=== PATIENT | male | born 1950 | race Caucasian/White ===

== ENCOUNTER 2019-03-17 13:25 | Inpatient (IN) | payer MEDICARE ==
[2019-03-20] MEDS ORDERED: NALOXONE INH PRN (12:45)
[2019-03-20] MEDS ORDERED: Albuterol HFA 18 Gm Inhaler INH PRN (12:45)
[2019-03-20] MEDS ORDERED: Magnesium Hydroxide 400 MG/5 ML Susp 30 ML Cup PO PRN (12:49)
[2019-03-20] MEDS ORDERED: Polyethylene Glycol 3350 Powder 17 GM Packet PO PRN (12:49)
[2019-03-20] MEDS ORDERED: Albuterol 0.083% 2.5 MG/3 ML Neb Soln NEB PRN (13:11)
[2019-03-20] MEDS ORDERED: Ipratropium 0.02% 0.5 MG/2.5 ML Neb Soln NEB SCH (15:00)
[2019-03-20] MEDS: Fluticasone-Salmeterol 232-14 MCG Powder Inhalent INH SCH (19:55)
[2019-03-20] MEDS: Acetaminophen/HYDROcodone 325-10 MG Tab PO SCH (19:56)
[2019-03-20] MEDS: Morphine 30 MG Tab.ER PO SCH (19:58)
[2019-03-20] MEDS: Mirtazapine 30 MG Tab PO SCH (19:58)
[2019-03-21] MEDS ORDERED: Cyclobenzaprine 10 MG Tab PO STA (01:10)
[2019-03-21] MEDS ORDERED: Cyclobenzaprine 10 MG Tab PO PRN (01:20)
[2019-03-21] MEDS ORDERED: Non-Formulary Medication 1 Each (Tiotropium [Spiriva Handihaler] 1 CAP) PO SCH (08:00)
[2019-03-21] MEDS: Morphine 30 MG Tab.ER PO SCH ×2 (08:41→20:16)
[2019-03-21] MEDS: Tamsulosin 0.4 MG Cap.ER PO SCH (08:41)
[2019-03-21] MEDS: Acetaminophen/HYDROcodone 325-10 MG Tab PO SCH ×2 (08:41→20:17)
[2019-03-21] MEDS: Cholecalciferol (Vitamin D3) 25 MCG Tab PO SCH (08:42)
[2019-03-21] MEDS: Enoxaparin 40 MG/0.4 ML Syringe SUBCUT SCH (08:42)
[2019-03-21] MEDS: Aspirin 81 MG Tab.EC PO SCH (08:42)
[2019-03-21] MEDS: Citalopram 20 MG Tab PO SCH (08:42)
[2019-03-21] MEDS: Fluticasone-Salmeterol 232-14 MCG Powder Inhalent INH SCH ×2 (08:42→20:17)
[2019-03-21] MEDS: SPIRIVA HANDIHALER PO SCH (11:15)
--- NOTE | 2019-03-21 12:44 | HP ---
CHIEF COMPLAINT: 1. Acute right hip fracture. 2. Weakness. 3. Deconditioning. 4. Acute superior pubic ramus fracture. HISTORY OF PRESENT ILLNESS: Mr. Jo is a 68-year-old male who initially presented to the emergency room at [facility] after he tripped over a shoe and fell against a chair with severe pain in his right hip and pelvis. He has underlying COPD, emphysematous type. He is on home O2. He also has pulmonary hypertension. He is on chronic narcotic analgesic and has a pain contract through [facility]. Mr. Jo is a vet, but the [place] is not accepting ortho surgical cases; therefore, he was transferred to [facility] in [place]. Mr. Jo suffered major trauma trimming a tree, falling several feet onto concrete surface in 2009. He suffered a skull fracture with a TBI, facial fracture, left arm and left hip fracture. 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 The patient denies any headaches. No vision trouble or other injuries. The patient denies any fevers or chills. He has had to increase his O2 since his fall. He does not have any chest pain. The patient denies any palpitations. The patient currently denies any pain. PAST MEDICAL HISTORY: 1. BPH. 2. Cerebrovascular disease, with stroke. 3. Chronic back pain. 4. COPD. 5. Depression. 6. Erectile dysfunction. 7. Long-term use of opioid analgesic. 8. TBI. 9. Visual problems. PAST SURGICAL HISTORY: 1. Elbow surgery. 2. Hip surgery. 3. Neck surgery. 4. Chest tube placement. 5. Shoulder surgery. 6. Thoracotomy. 7. Upper GI. FAMILY HISTORY: Noncontributory. SOCIAL HISTORY: The patient reports that he quit smoking about 5 to 6 years ago. His smoking use included cigarettes. He started smoking about 50 years ago. He has a [id number] smoking history. The patient denies any alcohol or drug use. ALLERGIES: Penicillin. CURRENT MEDICATIONS: 1. Hydrocodone/acetaminophen 10/325 one tablet p.o. twice daily. 2. Albuterol HFA 2.5 mg nebulizer every 4 hours as needed. 3. Aspirin 81 mg 1 tablet p.o. daily. 4. Cholecalciferol 25 mcg 1 tablet p.o. daily. 5. Citalopram 40 mg 1 tablet p.o. daily. 6. Cyclobenzaprine 10 mg 1 tablet p.o. every 8 hours as needed. 7. Docusate sodium/senna 1 tablet p.o. twice daily as needed. 8. Enoxaparin 40 mg subcutaneously daily. 9. Fluticasone/salmeterol 1 puff inhalation twice daily. 10.Magnesium hydroxide 30 mL p.o. every 12 hours as needed. 11.Mirtazapine 30 mg 1 tablet p.o. at bedtime. 12.MS Contin 30 mg 1 tablet p.o. twice daily. 13.Naloxone 1 spray inhalation as needed. 14.Polyethylene glycol 17 g p.o. daily as needed. 15.Tamsulosin 0.4 mg 1 tablet p.o. daily. 16.Spiriva 1 capsule p.o. daily. REVIEW OF SYSTEMS: Constitutional: Negative. Respiratory: Denies any shortness of breath or cough. Cardiac: Denies any chest pain, palpitations, or leg swelling. Abdomen: Denies any pain or problems with bowel movements. Musculoskeletal: The patient states he has mild pain with ambulation; however, he is comfortable. Skin: Negative. Neurological: Negative. PHYSICAL EXAMINATION: Vital Signs: Height is 5 feet 11 inches, weight is 199 pounds, temperature is 98.4, pulse is 89, blood pressure is 99/70, respirations are 18, pulse ox is 98%. General Presentation: The patient is alert. The patient is cooperative, in no acute distress. Respiratory: Lung sounds are decreased, clear throughout. Cardiac: Regular rate and rhythm. No murmur. Abdomen: Soft. Bowel sounds are present x4. No tenderness. Musculoskeletal: Incision sites are healing well. Skin: Intact, no rash. Neurological: The patient is alert. The patient is oriented x3, no focal neurological deficits. ASSESSMENT: 1. Acute right hip fracture. 2. Acute superior pubic rami fracture. 3. Weakness. 4. Deconditioning. 5. Acute pain, history of chronic pain and narcotic dependence. 6. Chronic obstructive pulmonary disease/emphysema. 7. Chronic respiratory failure, hypoxia, home O2. 8. Pulmonary hypertension. PLAN: The patient will be admitted to the swing bed unit at [facility] for weakness and deconditioning secondary to his hip fracture. The patient will be seen by Physical Therapy. We will ask Case Management to be involved for discharge planning. The patient is a full code. The patient does wish to be transferred to a higher level of care should the need arise. No changes with any medications, we will continue his home medications as prescribed. The patient will follow his pain contract rules while he is on swing bed. The patient will be placed on a heart healthy diet. We will continue Lovenox 40 mg subcu daily for DVT prophylaxis. Note: This patient was seen and examined by me as an [facility] provider. TB: 03/21/2019 07:44:32 MODL: 03/21/2019 12:35:51 /[id number]
[2019-03-21] MEDS: Mirtazapine 30 MG Tab PO SCH (20:16)
[2019-03-21] MEDS: Cyclobenzaprine 10 MG Tab PO PRN (23:48)
[2019-03-22] MEDS: Acetaminophen/HYDROcodone 325-10 MG Tab PO SCH ×2 (08:54→19:51)
[2019-03-22] MEDS: SPIRIVA HANDIHALER PO SCH (08:54)
[2019-03-22] MEDS: Cholecalciferol (Vitamin D3) 25 MCG Tab PO SCH (08:54)
[2019-03-22] MEDS: Citalopram 20 MG Tab PO SCH (08:54)
[2019-03-22] MEDS: Morphine 30 MG Tab.ER PO SCH ×2 (08:54→19:51)
[2019-03-22] MEDS: Enoxaparin 40 MG/0.4 ML Syringe SUBCUT SCH (08:54)
[2019-03-22] MEDS: Tamsulosin 0.4 MG Cap.ER PO SCH (08:55)
[2019-03-22] MEDS: Aspirin 81 MG Tab.EC PO SCH (08:55)
[2019-03-22] MEDS: Fluticasone-Salmeterol 232-14 MCG Powder Inhalent INH SCH ×2 (08:55→19:51)
[2019-03-22] MEDS: Cyclobenzaprine 10 MG Tab PO PRN (12:47)
[2019-03-22] MEDS: Acetaminophen 325 MG Tab PO PRN (17:35)
[2019-03-22] MEDS: Mirtazapine 30 MG Tab PO SCH (19:51)
[2019-03-23] MEDS: Cyclobenzaprine 10 MG Tab PO PRN (00:33)
[2019-03-23] MEDS: Enoxaparin 40 MG/0.4 ML Syringe SUBCUT SCH (09:02)
[2019-03-23] MEDS: Acetaminophen/HYDROcodone 325-10 MG Tab PO SCH ×2 (09:03→21:03)
[2019-03-23] MEDS: Morphine 30 MG Tab.ER PO SCH ×2 (09:03→21:01)
[2019-03-23] MEDS: Cholecalciferol (Vitamin D3) 25 MCG Tab PO SCH (09:03)
[2019-03-23] MEDS: Tamsulosin 0.4 MG Cap.ER PO SCH (09:04)
[2019-03-23] MEDS: Citalopram 20 MG Tab PO SCH (09:04)
[2019-03-23] MEDS: Aspirin 81 MG Tab.EC PO SCH (09:04)
[2019-03-23] MEDS: Fluticasone-Salmeterol 232-14 MCG Powder Inhalent INH SCH ×2 (09:06→21:06)
[2019-03-23] MEDS: SPIRIVA HANDIHALER PO SCH (09:06)
[2019-03-23] MEDS: Mirtazapine 30 MG Tab PO SCH (21:04)
[2019-03-24] MEDS: Cholecalciferol (Vitamin D3) 25 MCG Tab PO SCH (07:49)
[2019-03-24] MEDS: Acetaminophen/HYDROcodone 325-10 MG Tab PO SCH ×2 (07:49→19:48)
[2019-03-24] MEDS: Citalopram 20 MG Tab PO SCH (07:49)
[2019-03-24] MEDS: Enoxaparin 40 MG/0.4 ML Syringe SUBCUT SCH (07:50)
[2019-03-24] MEDS: Tamsulosin 0.4 MG Cap.ER PO SCH (07:50)
[2019-03-24] MEDS: Aspirin 81 MG Tab.EC PO SCH (07:50)
[2019-03-24] MEDS: Morphine 30 MG Tab.ER PO SCH ×2 (07:50→19:48)
[2019-03-24] MEDS: Fluticasone-Salmeterol 232-14 MCG Powder Inhalent INH SCH ×2 (07:51→19:49)
[2019-03-24] MEDS: SPIRIVA HANDIHALER PO SCH (07:52)
[2019-03-24] MEDS: Acetaminophen 325 MG Tab PO PRN (18:33)
[2019-03-24] MEDS: Mirtazapine 30 MG Tab PO SCH (19:49)
[2019-03-25] MEDS: Enoxaparin 40 MG/0.4 ML Syringe SUBCUT SCH (08:02)
[2019-03-25] MEDS: Tamsulosin 0.4 MG Cap.ER PO SCH (08:02)
[2019-03-25] MEDS: Cholecalciferol (Vitamin D3) 25 MCG Tab PO SCH (08:02)
[2019-03-25] MEDS: SPIRIVA HANDIHALER PO SCH (08:02)
[2019-03-25] MEDS: Fluticasone-Salmeterol 232-14 MCG Powder Inhalent INH SCH ×2 (08:02→19:49)
[2019-03-25] MEDS: Citalopram 20 MG Tab PO SCH (08:03)
[2019-03-25] MEDS: Morphine 30 MG Tab.ER PO SCH ×2 (08:03→19:48)
[2019-03-25] MEDS: Acetaminophen/HYDROcodone 325-10 MG Tab PO SCH ×2 (08:03→19:48)
[2019-03-25] MEDS: Aspirin 81 MG Tab.EC PO SCH (08:03)
[2019-03-25] MEDS: Mirtazapine 30 MG Tab PO SCH (19:49)
[2019-03-26] MEDS: Morphine 30 MG Tab.ER PO SCH ×2 (07:35→19:19)
[2019-03-26] MEDS: Fluticasone-Salmeterol 232-14 MCG Powder Inhalent INH SCH ×2 (07:36→19:19)
[2019-03-26] MEDS: SPIRIVA HANDIHALER PO SCH (07:36)
[2019-03-26] MEDS: Citalopram 20 MG Tab PO SCH (07:36)
[2019-03-26] MEDS: Tamsulosin 0.4 MG Cap.ER PO SCH (07:37)
[2019-03-26] MEDS: Acetaminophen/HYDROcodone 325-10 MG Tab PO SCH ×2 (07:37→19:20)
[2019-03-26] MEDS: Aspirin 81 MG Tab.EC PO SCH (07:37)
[2019-03-26] MEDS: Enoxaparin 40 MG/0.4 ML Syringe SUBCUT SCH (07:38)
[2019-03-26] MEDS: Cholecalciferol (Vitamin D3) 25 MCG Tab PO SCH (07:38)
[2019-03-26] MEDS: Mirtazapine 30 MG Tab PO SCH (19:20)
[2019-03-26] MEDS: Cyclobenzaprine 10 MG Tab PO PRN (23:13)
[2019-03-27] MEDS: Enoxaparin 40 MG/0.4 ML Syringe SUBCUT SCH (08:20)
[2019-03-27] MEDS: Citalopram 20 MG Tab PO SCH (08:21)
[2019-03-27] MEDS: Morphine 30 MG Tab.ER PO SCH ×2 (08:21→19:15)
[2019-03-27] MEDS: Acetaminophen/HYDROcodone 325-10 MG Tab PO SCH ×2 (08:22→19:15)
[2019-03-27] MEDS: Aspirin 81 MG Tab.EC PO SCH (08:22)
[2019-03-27] MEDS: Cholecalciferol (Vitamin D3) 25 MCG Tab PO SCH (08:22)
[2019-03-27] MEDS: Tamsulosin 0.4 MG Cap.ER PO SCH (08:22)
[2019-03-27] MEDS: Fluticasone-Salmeterol 232-14 MCG Powder Inhalent INH SCH ×2 (08:24→19:14)
[2019-03-27] MEDS: SPIRIVA HANDIHALER PO SCH (09:37)
[2019-03-27] MEDS: Mirtazapine 30 MG Tab PO SCH (19:15)
[2019-03-27] MEDS: Cyclobenzaprine 10 MG Tab PO PRN (23:27)
[2019-03-28] MEDS: Fluticasone-Salmeterol 232-14 MCG Powder Inhalent INH SCH ×2 (07:42→19:22)
[2019-03-28] MEDS: Enoxaparin 40 MG/0.4 ML Syringe SUBCUT SCH (07:42)
[2019-03-28] MEDS: SPIRIVA HANDIHALER PO SCH (07:42)
[2019-03-28] MEDS: Citalopram 20 MG Tab PO SCH (07:43)
[2019-03-28] MEDS: Acetaminophen/HYDROcodone 325-10 MG Tab PO SCH ×2 (07:43→19:22)
[2019-03-28] MEDS: Tamsulosin 0.4 MG Cap.ER PO SCH (07:43)
[2019-03-28] MEDS: Cholecalciferol (Vitamin D3) 25 MCG Tab PO SCH (07:44)
[2019-03-28] MEDS: Morphine 30 MG Tab.ER PO SCH ×2 (07:44→19:21)
[2019-03-28] MEDS: Aspirin 81 MG Tab.EC PO SCH (07:44)
[2019-03-28] MEDS: Mirtazapine 30 MG Tab PO SCH (19:22)
[2019-03-29] MEDS: SPIRIVA HANDIHALER PO SCH (08:04)
[2019-03-29] MEDS: Fluticasone-Salmeterol 232-14 MCG Powder Inhalent INH SCH ×2 (08:04→19:18)
[2019-03-29] MEDS: Acetaminophen/HYDROcodone 325-10 MG Tab PO SCH ×2 (08:06→19:19)
[2019-03-29] MEDS: Enoxaparin 40 MG/0.4 ML Syringe SUBCUT SCH (08:06)
[2019-03-29] MEDS: Aspirin 81 MG Tab.EC PO SCH (08:06)
[2019-03-29] MEDS: Tamsulosin 0.4 MG Cap.ER PO SCH (08:06)
[2019-03-29] MEDS: Citalopram 20 MG Tab PO SCH (08:06)
[2019-03-29] MEDS: Morphine 30 MG Tab.ER PO SCH ×2 (08:06→19:20)
[2019-03-29] MEDS: Cholecalciferol (Vitamin D3) 25 MCG Tab PO SCH (08:06)
[2019-03-29] MEDS: Mirtazapine 30 MG Tab PO SCH (19:19)
[2019-03-30 05:22] VITALS: BP 104/60; PULSE 74
[2019-03-30] MEDS: Fluticasone-Salmeterol 232-14 MCG Powder Inhalent INH SCH (07:49)
[2019-03-30] MEDS: Enoxaparin 40 MG/0.4 ML Syringe SUBCUT SCH (07:50)
[2019-03-30] MEDS: Cholecalciferol (Vitamin D3) 25 MCG Tab PO SCH (07:50)
[2019-03-30] MEDS: SPIRIVA HANDIHALER PO SCH (07:50)
[2019-03-30] MEDS: Tamsulosin 0.4 MG Cap.ER PO SCH (07:50)
[2019-03-30] MEDS: Citalopram 20 MG Tab PO SCH (07:50)
[2019-03-30] MEDS: Morphine 30 MG Tab.ER PO SCH (07:50)
[2019-03-30] MEDS: Acetaminophen/HYDROcodone 325-10 MG Tab PO SCH (07:50)
[2019-03-30] MEDS: Aspirin 81 MG Tab.EC PO SCH (07:50)
[2019-03-30] MEDS: Sulfamethoxazole/Trimethoprim 800-160 MG Tab PO SCH ×2 (09:25→09:26)
--- NOTE | 2019-03-30 15:00 | DISCH ---
DISCHARGE DIAGNOSES: 1. Acute right hip fracture. 2. Weakness. 3. Deconditioning. 4. Acute superior pubic ramus fracture. 5. Status post hemiarthroplasty, right hip. DISCHARGE DESTINATION: Home. HISTORY OF PRESENT ILLNESS: Mr. Jo is a 68-year-old male who initially presented to the emergency room at [facility] after he tripped over a shoe and fell against a chair with severe pain to his right hip and pelvis. He has underlying COPD, emphysematous type. He is on home O2. He also has pulmonary hypertension. He is on chronic narcotic analgesic and has a pain contract through [facility]. Mr. Jo is a vet, but the [place] is not accepting ortho-surgical cases; therefore, he was transferred to [facility] in [place]. Mr. Jo underwent a right hip hemiarthroplasty on 03/10/2019. The surgery was uneventful. The patient had done well with physical therapy and was able to be discharged to the Swing Bed Unit at [facility] on 03/20/2019. The patient also did well while he was on the Swing Bed Unit. The patient did have a re-evaluation with Orthopedics on 03/28/2019. The dominique from his incision were removed. The patient did have some draining from the surgical site, therefore, he was prophylactically started on Bactrim DS. This medication was not started as there is not a source of infection. HOSPITAL COURSE: The patient did well during his stay on the Swing Bed Unit. Patient was able to participate with physical therapy and has met his goals for discharge. The patient's pain was under well control. Patient did tolerate his diet okay. Patient did not have any issues with urination or bowel movement. The patient remained hemodynamically stable. Discharge vital signs: Temperature 98.3, pulse 74, blood pressure 104/60, respirations 17, oxygen saturation 95% on 3 L. DISCHARGE REVIEW OF SYSTEMS: Constitutional: Negative. Respiratory: Negative. Cardiovascular: Negative. Wound/Incision: Has some mild tenderness. Neurological: Negative. DISCHARGE PHYSICAL EXAM: Constitutional: The patient is alert, the patient is oriented to person, place, and time. Respiratory: Lung sounds are clear but diminished throughout. Cardiovascular: Regular rate and rhythm. No murmur. Incision: Wound is healing well. There is no dehiscence. No drainage this morning. Neurological: The patient is alert, sensation intact, no distress. DISCHARGE LABORATORY WORK: None. DISCHARGE IMAGING STUDIES: None. DISCHARGE MEDICATIONS: 1. Acetaminophen/hydrocodone 10/325, one tablet twice daily. 2. Aspirin 81 mg 1 tablet p.o. daily. 3. Cholecalciferol 25 mcg 1 tablet p.o. daily. 4. Citalopram 40 mg 1 tablet p.o. daily. 5. Cyclobenzaprine 10 mg 1 tablet p.o. every 8 hours. 6. Docusate sodium 1 tablet p.o. twice daily as needed. 7. Fluticasone/salmeterol 1 puff twice daily. 8. Mirtazapine 30 mg 1 tablet p.o. at bedtime. 9. Morphine 30 mg 1 tablet p.o. twice daily. 10.Naloxone 1 spray as directed. 11.Tamsulosin 0.4 mg 1 tablet p.o. daily. 12.Spiriva 1 capsule inhalation daily. DISCHARGE DIET: 2 g sodium. PLAN: The patient will be discharged home today. The patient will have outpatient physical therapy through [facility]. No changes with any home medications. Did discuss with the patient any problems with his wound that he should return to the clinic; otherwise, he will follow up with Dr. Alla Hoff in 1 week for a post hospitalization followup. TB: 03/30/2019 08:41:14 MODL: 03/30/2019 14:52:11 /[id number]
== END 2019-03-30 13:15 | disposition home or self-care (01) | DRG 560 ==
LOC: VM.MS 03-20 13:56
PROVIDERS: ADMIT Nurse Practitioner Family; ATTEND Nurse Practitioner Family
DX: Z47.1 Aftercare following joint replacement surgery (principal); J96.11 Chronic respiratory failure with hypoxia; J44.9 Chronic obstructive pulmonary disease, unspecified; N40.0 Benign prostatic hyperplasia without lower urinary tract symptoms; I27.20 Pulmonary hypertension, unspecified; M54.9 Dorsalgia, unspecified; G89.29 Other chronic pain; Z96.641 Presence of right artificial hip joint; F32.9 Major depressive disorder, single episode, unspecified; Z98.890 Other specified postprocedural states; Z87.891 Personal history of nicotine dependence; Z88.0 Allergy status to penicillin; Z79.51 Long term (current) use of inhaled steroids; Z79.82 Long term (current) use of aspirin; Z79.899 Other long term (current) drug therapy; Z99.81 Dependence on supplemental oxygen; Z86.73 Personal history of transient ischemic attack (TIA), and cerebral infarction without residual deficits
CPT/HCPCS: 94640; 94760; 97110-GP; 97116-GP; 97161-GP; 97165-GO; 97535-GO; A9270-GY; J1650

== ENCOUNTER 2020-09-02 20:50 | Emergency (ER) | payer MEDICARE, OTHER ==
[2020-09-02] MEDS ORDERED: Sodium Chloride 0.9% 10 ML Syringe FLUSH PRN (21:00)
[2020-09-02] MEDS ORDERED: methylPREDNISolone Sodium Succinate 125 MG/2 ML SDV IVPUSH ONE (21:01)
[2020-09-02] MEDS ORDERED: methylPREDNISolone Sodium Succinate 125 MG/2 ML SDV ONE (21:11)
--- NOTE | 2020-09-02 21:11 | EDM.PDOC ---
ED HPI GENERAL MEDICAL PROBLEM - General Chief Complaint: Respiratory Problem Stated Complaint: SOB Time Seen by Provider: 09/02/20 20:59 Source of Information: Reports: EMS, Family - History of Present Illness INITIAL COMMENTS - FREE TEXT/NARRATIVE: Raymond is a 70 y/o male who is brought to the ER via EMS with severe SOB. He has been SOB all day and also complained of back pain. He arrives from EMS with Bipap and a neb going. On arrival to his home medics reports that he had sats in the 70s and with NRB he only was in the mid 80s. The patient reports a dry hacky cough today, denies any sputum or fever when asked. Family is here in the hospital, but does not offer much info about the patient other than they are upset that he was brought her to the [facility] ER and was not taken directly to [place]. - Related Data Allergies Allergy/AdvReac Type Severity Reaction Status Date / Time Penicillins Allergy Hives Verified 09/03/15 12:46 Home Meds: Home Meds Albuterol [Ventolin HFA] 2 puff PO QID 07/16/15 [History] Aspirin [Halfprin] 81 mg PO DAILY 07/16/15 [History] Cholecalciferol (Vitamin D3) [Vitamin D3] 1,000 units PO DAILY 07/16/15 [History] Escitalopram Oxalate [Lexapro] 20 mg PO DAILY 07/16/15 [History] Hydrocodone/Acetaminophen [[place] 10-325] 1 tab PO BID 07/16/15 [History] Mirtazapine [Remeron] 30 mg PO BEDTIME 07/16/15 [History] Tamsulosin [Flomax] 0.4 mg PO DAILY 07/16/15 [History] Tiotropium [Spiriva HandiHaler] 1 cap PO DAILY 07/16/15 [History] Budesonide/Formoterol Fumarate [Symbicort 160-4.5 Mcg Inhaler] 2 puff INH BID 03/20/19 [History] Enoxaparin [Lovenox] 40 mg SUBCUT Q24H 03/20/19 [History] Morphine Sulfate [Morphine Sulfate ER] 30 mg PO Q12HR 03/20/19 [History] Naloxone HCl [Narcan] 1 spray INH ASDIRECTED PRN 03/20/19 [History] Past Medical History HEENT History: Reports: None Cardiovascular History: Reports: SOB on Exertion Respiratory History: Reports: COPD Musculoskeletal History: Reports: Back Pain, Chronic, Neck Pain, Chronic Psychiatric History: Reports: Depression Hematologic History: Reports: None Immunologic History: Reports: None Oncologic (Cancer) History: Reports: None - Past Surgical History HEENT Surgical History: Reports: None Musculoskeletal Surgical History: Reports: Shoulder Surgery Oncologic Surgical History: Reports: None Dermatological Surgical History: Reports: None Social & Family History - Caffeine Use Caffeine Use: Reports: Coffee Caffeine Use Comment: Three cups of coffee a day. Review of Systems - Review of Systems Review Of Systems: Unable To Obtain Reason Not Obtained: Complete ROS not obtained due to condition Respiratory: Reports: Shortness of Breath, Cough. Denies: Sputum ED EXAM, GENERAL - Physical Exam Exam: See Below General Appearance: Alert, Moderate Distress, Severe Distress, Other (Elderly male in acute distress) Ears: Hearing Grossly Normal Throat/Mouth: Normal Inspection Head: Atraumatic, Normocephalic Neck: Supple Respiratory/Chest: Respiratory Distress, Decreased Breath Sounds, Crackles (scattered throughout), Prolonged Expiration Cardiovascular: Normal Peripheral Pulses, Regular Rate, Rhythm, No Murmur GI/Abdominal: Normal Bowel Sounds, Soft (Male) Exam: Circumcised, Other (incontinent of urine) Rectal (Males) Exam: Deferred Back Exam: Normal Inspection Extremities: Other (Right lower leg is erthematous and swollen from foot up to below knee) Neurological: Alert, CN II-XII Intact, Other (Can given 1 word answers in between breathing) Skin Exam: Warm, Dry, Intact, Normal Color Lymphatic: No Adenopathy Course - Vital Signs Text/Narrative:: 2058 The patient was seen on arrival to the ER. Labs, EKG, and CXR ordered. He had a neb finishing from EMS, SoluMedrol 125mg IVP was given. [facility] was contacted and case presented to Dr Sparks. Plan to intubate patient due to increasing resp rate and decreasing sats. See nursing notes for intubation times and med dosages. Following intubation, CXR was obtained. Note questionable left sided pneumothorax, but clinically patient doing better. Very diminished lung sounds in the LLLSats 90% with vent nereida HSK5=139%, Rate 14, Tidal Jqkupg=741, PEEP 10. Ceftriaxone 2gm IVP and Azithromycin 500mg IVPB ordered to cover for sepsis. Lactic Acid-2.5, WBC=18.5, Neuts-86%. Trop=neg. Cannot exclude pneumonia, but also consider Cellulitis of Right Lower leg as course of infection. [facility]. Questionable left pneumothorax, but patient tolerating intubation and sats 90-91%. Decision made by flight crew and PROFILING MACHINE OPERATOR to move patient to their vent and reassess prior to transport. No chest tube placed here since patient doing well on transport vent and no definite p neumo identified. Patient left in critical condition with flight crew. - Orders/Labs/Meds Orders: Active Orders 24 hr Category Date Time Status Burgess Catheter Insertion [Insert Urinary Catheter] [OM. Care 09/02/20 22:15 Ordered PC] Q24H CULTURE BLOOD [BC] Stat Lab 09/02/20 21:14 Received CULTURE BLOOD [BC] Stat Lab 09/02/20 21:20 Results Blood Culture x2 Reflex Set [OM.PC] Stat Oth 09/02/20 21:00 Ordered Saline Lock Insert [OM.PC] Stat Oth 09/02/20 21:00 Ordered Labs: Laboratory Tests 09/02/20 09/02/20 09/02/20 Range/Units 21:14 21:14 21:14 WBC 18.5 H (4.0-10.0) x10^3/uL RBC 5.07 (4.5-6.0) x10^6/uL Hgb 15.5 D (14.0-18.0) g/dL Hct 46.3 (40.0-52.0) % MCV 91.3 (78.0-93.0) fL MCH 30.6 (26.0-32.0) pg MCHC 33.5 (32.0-36.0) g/dL RDW Coeff of Cristian 15.0 (10.0-15.0) % Plt Count 233 (130-400) x10^3/uL Add Manual Diff Yes Neutrophils % (Manual) 86 H (50-80) % Band Neutrophils % 4 (0-6) % Lymphocytes % (Manual) 6 L (25-50) % Monocytes % (Manual) 4 (2-11) % Platelet Estimate Adequate PT (9.9-12.5) SEC INR (2.0-3.5) APTT (25.6-32.8) SEC D-Dimer, Quantitative (<=0.58) mg/LFEU Sodium 131 L (136-145) mmol/L Potassium 4.6 (3.5-5.1) mmol/L Chloride 95 L (98-107) mmol/L Carbon Dioxide 27 (21-32) mmol/L Anion Gap 13.6 (5-15) mmol/L BUN 24 H (7-18) mg/dL Creatinine 1.1 (0.70-1.30) mg/dL Est Cr Clr Drug Dosing TNP Estimated GFR (MDRD) > 60 Glucose 114 H (70-99) mg/dL Lactic Acid 2.5 H* (0.4-2.0) mmol/L Calcium 9.0 (8.5-10.1) mg/dL Corrected Calcium 10.0 (8.5-10.1) mg/dL Magnesium 1.8 (1.8-2.4) mg/dL Total Bilirubin 1.1 H (0.2-1.0) mg/dL AST 21 (15-37) U/L ALT 21 (16-63) U/L Alkaline Phosphatase 100 (46-116) U/L Troponin I High Sens 24 (<=76) ng/L Total Protein 6.7 (6.4-8.2) g/dL Albumin 2.8 L (3.4-5.0) g/dL Globulin 3.9 Albumin/Globulin Ratio 0.72 Urine Color (YELLOW) Urine Appearance (CLEAR) Urine pH (5.0-8.0) Ur Specific [place] Urine Protein (NEGATIVE) mg/dL Urine Glucose (UA) (NEGATIVE) mg/dL Urine Ketones (NEGATIVE) mg/dL Urine Occult Blood (NEGATIVE) Urine Nitrite (NEGATIVE) Urine Bilirubin (NEGATIVE) Urine Urobilinogen (0.2) EU/dL Ur Leukocyte Esterase (NEGATIVE) Urine RBC (NOT SEEN) /HPF Urine WBC (NOT SEEN) /HPF Urine Bacteria (NOT SEEN) /HPF Urine Mucus (NOT SEEN) /LPF Influenza Type A RNA (NEGATIVE) Influenza Type B RNA (NEGATIVE) SARS-CoV-2 RNA (GURVINDER) (NEGATIVE) 09/02/20 09/02/20 09/02/20 Range/Units 21:20 21:43 22:01 WBC (4.0-10.0) x10^3/uL RBC (4.5-6.0) x10^6/uL Hgb (14.0-18.0) g/dL Hct (40.0-52.0) % MCV (78.0-93.0) fL MCH (26.0-32.0) pg MCHC (32.0-36.0) g/dL RDW Coeff of Cristian (10.0-15.0) % Plt Count (130-400) x10^3/uL Add Manual Diff Neutrophils % (Manual) (50-80) % Band Neutrophils % (0-6) % Lymphocytes % (Manual) (25-50) % Monocytes % (Manual) (2-11) % Platelet Estimate PT 12.0 (9.9-12.5) SEC INR 1.1 L (2.0-3.5) APTT 32.8 (25.6-32.8) SEC D-Dimer, Quantitative 2.72 H (<=0.58) mg/LFEU Sodium (136-145) mmol/L Potassium (3.5-5.1) mmol/L Chloride (98-107) mmol/L Carbon Dioxide (21-32) mmol/L Anion Gap (5-15) mmol/L BUN (7-18) mg/dL Creatinine (0.70-1.30) mg/dL Est Cr Clr Drug Dosing Estimated GFR (MDRD) Glucose (70-99) mg/dL Lactic Acid (0.4-2.0) mmol/L Calcium (8.5-10.1) mg/dL Corrected Calcium (8.5-10.1) mg/dL Magnesium (1.8-2.4) mg/dL Total Bilirubin (0.2-1.0) mg/dL AST (15-37) U/L ALT (16-63) U/L Alkaline Phosphatase (46-116) U/L Troponin I High Sens (<=76) ng/L Total Protein (6.4-8.2) g/dL Albumin (3.4-5.0) g/dL Globulin Albumin/Globulin Ratio Urine Color Yellow (YELLOW) Urine Appearance Clear (CLEAR) Urine pH 7.0 (5.0-8.0) Ur Specific [place] 1.025 Urine Protein 30 H (NEGATIVE) mg/dL Urine Glucose (UA) Negative (NEGATIVE) mg/dL Urine Ketones Negative (NEGATIVE) mg/dL Urine Occult Blood Negative (NEGATIVE) Urine Nitrite Negative (NEGATIVE) Urine Bilirubin Small H (NEGATIVE) Urine Urobilinogen 2.0 H (0.2) EU/dL Ur Leukocyte Esterase Negative (NEGATIVE) Urine RBC 0-5 (NOT SEEN) /HPF Urine WBC 0-5 (NOT SEEN) /HPF Urine Bacteria Rare (NOT SEEN) /HPF Urine Mucus Few H (NOT SEEN) /LPF Influenza Type A RNA Negative (NEGATIVE) Influenza Type B RNA Negative (NEGATIVE) SARS-CoV-2 RNA (GURVINDER) Negative (NEGATIVE) Meds: Medications Discontinued Medications Generic Name Dose Route Start Last Admin Trade Name Freq PRN Reason Stop Dose Admin Ceftriaxone Sodium 2 gm 09/02/20 21:13 Ceftriaxone 1 Gm Vial IVPUSH 09/02/20 21:14 STAT ONE Azithromycin 500 mg/ Sodium 250 mls @ 250 mls/hr 09/02/20 21:13 Chloride IV 09/02/20 22:12 STAT ONE Methylprednisolone Sodium Succinate 125 mg 09/02/20 21:01 Methylprednisolone Sodium Succinate 125 Mg/2 Ml Sdv IVPUSH 09/02/20 21:02 ONETIME ONE Methylprednisolone Sodium Succinate Confirm 09/02/20 21:11 Methylprednisolone Sodium Succinate 125 Mg/2 Ml Sdv Administered 09/02/20 21:12 Dose 125 mg .ROUTE .STK-MED ONE Midazolam HCl Confirm 09/02/20 21:40 Midazolam 1 Mg/Ml 2 Ml Sdv Administered 09/02/20 21:41 Dose 4 mg .ROUTE .STK-MED ONE Rocuronium Ferguson Confirm 09/02/20 21:34 Rocuronium 50 Mg/5 Ml Vial Administered 09/02/20 21:35 Dose 50 mg .ROUTE .STK-MED ONE Sodium Chloride 10 ml 09/02/20 21:00 Sodium Chloride 0.9% 10 Ml Syringe FLUSH ASDIRECTED PRN Keep Vein Open Succinylcholine Chloride Confirm 09/02/20 21:34 Succinylcholine 200 Mg/10 Ml Mdv Administered 09/02/20 21:35 Dose 200 mg .ROUTE .STK-MED ONE Succinylcholine Chloride Confirm 09/02/20 21:36 Succinylcholine 200 Mg/10 Ml Mdv Administered 06/21/21 21:37 Dose 200 mg .ROUTE .STK-MED ONE - Radiology Interpretation Free Text/Narrative:: XR Chest 1V=note extensive chronic changes, maybe early pneumonia, but the chronic lung disease makes reading difficult XR Chest 1V Post Intubation-ET tube in place, questionable left sided pneumothorax, but appearance of lower lobes similar to previous, awaiting radiology over read (See final report) Departure - Departure Time of Disposition: 21:15 Disposition: DC/Tfer to Acute Hospital 02 Condition: Critical Clinical Impression: Elevated lactic acid level Respiratory failure Qualifiers: Chronicity: acute Respiratory failure complication: hypoxia Qualified Code(s): J96.01 - Acute respiratory failure with hypoxia Emphysema/COPD Qualifiers: Emphysema type: unspecified Qualified Code(s): J43.9 - Emphysema, unspecified - Discharge Information Referrals: PCP,None [Primary Care Provider] - Forms: Interfacility Transfer EMTALA, ED Department Discharge Additional Instructions: -Transfer to [facility] ER via [facility]. - My Orders Last 24 Hours: My Active Orders 09/02/20 21:00 Blood Culture x2 Reflex Set [OM.PC] Stat Saline Lock Insert [OM.PC] Stat 09/02/20 21:14 CULTURE BLOOD [BC] Stat 09/02/20 21:20 CULTURE BLOOD [BC] Stat 09/02/20 22:15 Burgess Catheter Insertion [Insert Urinary Catheter] [OM.PC] Q24H - Assessment/Plan Last 24 Hours: My Active Orders 09/02/20 21:00 Blood Culture x2 Reflex Set [OM.PC] Stat Saline Lock Insert [OM.PC] Stat 09/02/20 21:14 CULTURE BLOOD [BC] Stat 09/02/20 21:20 CULTURE BLOOD [BC] Stat 09/02/20 22:15 Burgess Catheter Insertion [Insert Urinary Catheter] [OM.PC] Q24H Assessment:: 1)Respiratory Failure 2)COPD-Emphysema 3)Intubated Plan: As above
[2020-09-02] MEDS ORDERED: Azithromycin 500 MG in Sodium Chloride 0.9% 250 ML IV ONE (21:13)
[2020-09-02] MEDS ORDERED: cefTRIAXone 1 GM Vial IVPUSH ONE (21:13)
[2020-09-02] MEDS ORDERED: Succinylcholine 200 MG/10 ML MDV ONE ×2 (21:34→21:36)
[2020-09-02] MEDS ORDERED: Rocuronium 50 MG/5 ML Vial ONE (21:34)
[2020-09-02] MEDS ORDERED: Midazolam 1 MG/ML 2 ML SDV ONE (21:40)
[2020-09-02 21:52] LABS: CHLORIDE,CL 95 mmol/L (98-107); SODIUM,NA 131 mmol/L (136-145)
[2020-09-02 21:53] LABS: ANION GAP 13.6 mmol/L (5-15)
[2020-09-02 21:56] LABS: PTT,PARTIAL THROMBOPLSTIN TIME 32.8 SEC (25.6-32.8)
[2020-09-02 22:45] LABS: CORONAVIRUS COVID-19 NAA NEGATIVE (NEGATIVE)
--- NOTE | 2020-09-03 08:53 | CR ---
[id number] RAD/RAD Chest PA or AP 1V EXAM: RAD Chest PA or AP 1V INDICATION: POST INTUBATION, RESP DISTRESS COMPARISON: September 2015. DISCUSSION/IMPRESSION: Extensive opacification in the mid and lower lungs bilaterally. Blunting of the costophrenic sulci. Findings are superimposed on advanced parenchymal emphysema with scarring. Mild cardiomegaly and central vascular congestion. Appearance of findings is nonspecific. Differential diagnosis includes pneumonia, pulmonary edema, and/or aspiration/atelectasis. Doug Nunes MD 09/06/20 1426 Thank you for allowing us to participate in the care of your patient.
== END 2020-09-02 22:40 | disposition short-term general hospital (02) ==
LOC: VM.ED 20:50
DX: J43.9 Emphysema, unspecified (principal); J96.01 Acute respiratory failure with hypoxia; R74.02 Elevation of levels of lactic acid dehydrogenase [LDH]; Z20.822 Contact with and (suspected) exposure to COVID-19; Z88.0 Allergy status to penicillin; Z79.82 Long term (current) use of aspirin
CPT/HCPCS: 0240U; 31500; 36415; 51702; 71045; 80053; 81001; 83605; 83735; 84484; 85025; 85379; 85610; 85730; 87040; 93005; 96374; 96375; 99284; 99285-25; J0330

== ENCOUNTER 2020-10-27 20:51 | Emergency (ER) | payer OTHER ==
[2020-10-27] MEDS ORDERED: Furosemide 40 MG/4 ML VIAL IV ONE (21:18)
[2020-10-27] MEDS ORDERED: Albuterol/Ipratropium 3.0-0.5 MG/3 ML Neb Soln NEB ONE (21:26)
--- NOTE | 2020-10-27 21:41 | EDM.PDOC ---
ED HPI GENERAL MEDICAL PROBLEM - General Stated Complaint: FELL Time Seen by Provider: 10/27/20 20:51 Source of Information: Reports: Patient History Limitations: Reports: No Limitations - History of Present Illness INITIAL COMMENTS - FREE TEXT/NARRATIVE: Pt. presents to ER with complaints of L hip pain post fall. Pt. was recently discharged from [facility] after a 2 month stay at [facility]. Pt. had bilateral pneumonia at that time, and he did require prolonged intubation. Pt. has been convalescing at his daughter's residence since he was discharged on Wednesday. Family states that he has been experiencing increased peripheral edema in lower extremities. He was supposed to be on Cardura at time of discharge, but has not been on this for the past 4 days. Pt. states that he fell backward, and landed on his L posterolateral hip area. He has been unable to straighten the extremity. He did receiving fentanyl 100mcg IV in the ambulance. Pt. states that he does feel chilled, and somewhat more short of breath than the past several days. He is on O2 per NC at 5L/min. Pt. denies striking his head, and is not complaining of pain other than to L hip/pelvis area. Onset: Today Onset Date: 10/27/20 Location: Reports: Chest, Lower Extremity, Left, Generalized Worsens with: Reports: Movement Left hip Pain Score (Numeric/FACES): 8 - Related Data Allergies Allergy/AdvReac Type Severity Reaction Status Date / Time Penicillins Allergy Hives Verified 10/27/20 23:26 Home Meds: Home Meds Albuterol [Ventolin HFA] 2 puff PO QID 07/16/15 [History] Aspirin [Halfprin] 81 mg PO DAILY 07/16/15 [History] Cholecalciferol (Vitamin D3) [Vitamin D3] 1,000 units PO DAILY 07/16/15 [History] Escitalopram Oxalate [Lexapro] 20 mg PO DAILY 07/16/15 [History] Hydrocodone/Acetaminophen [[place] 10-325] 1 tab PO BID 07/16/15 [History] Mirtazapine [Remeron] 30 mg PO BEDTIME 07/16/15 [History] Tamsulosin [Flomax] 0.4 mg PO DAILY 07/16/15 [History] Tiotropium [Spiriva HandiHaler] 1 cap PO DAILY 07/16/15 [History] Budesonide/Formoterol Fumarate [Symbicort 160-4.5 Mcg Inhaler] 2 puff INH BID 03/20/19 [History] Enoxaparin [Lovenox] 40 mg SUBCUT Q24H 03/20/19 [History] Morphine Sulfate [Morphine Sulfate ER] 30 mg PO Q12HR 03/20/19 [History] Naloxone HCl [Narcan] 1 spray INH ASDIRECTED PRN 03/20/19 [History] Past Medical History HEENT History: Reports: None Cardiovascular History: Reports: SOB on Exertion Respiratory History: Reports: COPD Musculoskeletal History: Reports: Back Pain, Chronic, Neck Pain, Chronic Psychiatric History: Reports: Depression Hematologic History: Reports: None Immunologic History: Reports: None Oncologic (Cancer) History: Reports: None - Past Surgical History HEENT Surgical History: Reports: None Musculoskeletal Surgical History: Reports: Shoulder Surgery Oncologic Surgical History: Reports: None Dermatological Surgical History: Reports: None Social & Family History - Caffeine Use Caffeine Use: Reports: Coffee Caffeine Use Comment: Three cups of coffee a day. ED ROS GENERAL - Review of Systems Review Of Systems: See Below Constitutional: Reports: No Symptoms HEENT: Reports: No Symptoms Respiratory: Reports: No Symptoms Cardiovascular: Reports: Dyspnea on Exertion, Edema, PND Endocrine: Reports: No Symptoms GI/Abdominal: Reports: No Symptoms : Reports: No Symptoms Musculoskeletal: Reports: Leg Pain Skin: Reports: No Symptoms Neurological: Reports: No Symptoms Psychiatric: Reports: No Symptoms Hematologic/Lymphatic: Reports: No Symptoms Immunologic: Reports: No Symptoms ED EXAM, GENERAL - Physical Exam Exam: See Below Exam Limited By: No Limitations General Appearance: Alert, WD/WN, Anxious, Mild Distress Throat/Mouth: Normal Inspection, Normal Lips, Normal Teeth Head: Atraumatic, Normocephalic Neck: Normal Inspection, Supple, Non-Tender Respiratory/Chest: No Accessory Muscle Use, Decreased Breath Sounds, Crackles, Wheezing Cardiovascular: Normal Peripheral Pulses, Regular Rate, Rhythm, Tachycardia Peripheral Pulses: 4+: Radial (L) GI/Abdominal: Soft, Non-Tender, No Distention, No Mass (Male) Exam: Deferred Rectal (Males) Exam: Deferred Extremities: Normal Inspection, Normal Range of Motion, Non-Tender Neurological: Alert, Oriented, CN II-XII Intact, Normal Cognition, No Motor/Sensory Deficits Psychiatric: Normal Affect, Normal Mood Skin Exam: Warm, Dry, Intact, Normal Color Lymphatic: No Adenopathy #1 Interpretation Rhythm: NSR [place]: Normal P-Wave: Present QRS: Normal ST-T: Normal QT: Normal Course - Vital Signs Last Recorded V/S: Last Vital Signs Temp 38.5 C H 10/27/20 23:06 Pulse 130 H 10/27/20 20:51 Resp 20 10/27/20 20:51 BP 129/70 10/27/20 20:51 Pulse Ox 88 L 10/27/20 20:51 - Orders/Labs/Meds Orders: Active Orders 24 hr Category Date Time Status EKG Documentation Completion [RC] STAT Care 10/27/20 21:16 Active RT Aerosol Therapy [RC] ASDIRECTED Care 10/27/20 21:26 Active Chest 1V Frontal [CR] Stat Exams 10/27/20 20:59 Taken Hip Min 2V or 3V w Pelvis Lt [CR] Stat Exams 10/27/20 20:59 Taken CBC WITH AUTO DIFF [HEME] Stat Lab 10/27/20 22:15 Results CORONAVIRUS COVID-19 RAPID [MOLEC] Stat Lab 10/27/20 23:12 Received CULTURE BLOOD [BC] Stat Lab 10/27/20 22:15 Results CULTURE BLOOD [BC] Stat Lab 10/27/20 22:25 Received CULTURE URINE [RM] Stat Lab 10/27/20 22:15 Received MANUAL DIFFERENTIAL QA/NC [HEME] Stat Lab 10/27/20 22:15 Results PROCALCITONIN [CHEM] Stat Lab 10/27/20 22:15 Received REFLEX LACTIC ACID YES OR NO [CHEM] Routine Lab 10/27/20 23:15 Received Sodium Chloride 0.9% [Normal Saline] 1,000 ml Med 10/27/20 22:40 Active IV ASDIRECTED VANCOmycin 1.25 GM/250 ML 1.25 gm Med 10/27/20 22:28 Active Premix Bag 1 bag IV STAT Blood Culture x2 Reflex Set [OM.PC] Stat Oth 10/27/20 21:16 Ordered Medication Orders Vancomycin HCl 1.25 gm/ Premix 250 mls @ 200 mls/hr IV STAT ONE Stop: 10/27/20 23:42 Last Admin: 10/27/20 22:42 Dose: 200 mls/hr Documented by: JASMIN Sodium Chloride (Normal Saline) 1,000 mls @ 30 mls/hr IV ASDIRECTED JARETT Labs: Laboratory Tests 10/27/20 10/27/20 10/27/20 Range/Units 22:15 22:15 22:15 WBC 12.7 H (4.0-10.0) x10^3/uL RBC 4.37 L (4.5-6.0) x10^6/uL Hgb 13.5 L D (14.0-18.0) g/dL Hct 41.1 (40.0-52.0) % MCV 94.1 H (78.0-93.0) fL MCH 30.9 (26.0-32.0) pg MCHC 32.8 (32.0-36.0) g/dL RDW Coeff of Cristian 16.7 H (10.0-15.0) % Plt Count 255 (130-400) x10^3/uL Add Manual Diff Yes PT 10.2 (9.9-12.5) SEC INR 0.9 L (2.0-3.5) APTT 29.3 (25.6-32.8) SEC ABG pH (7.35-7.45) pH ABG pCO2 (35-48) mmHG ABG pO2 (83-108) mmHG ABG HCO3 (21-28) mmol/L ABG Total CO2 (22-29) mmol/L ABG O2 Content (94-98) % ABG Base Excess ((-2)-(+3)) mmol/L FiO2 Sodium 133 L (136-145) mmol/L Potassium 4.1 (3.5-5.1) mmol/L Chloride 97 L (98-107) mmol/L Carbon Dioxide 28 (21-32) mmol/L Anion Gap 12.1 (5-15) mmol/L BUN 20 H (7-18) mg/dL Creatinine 1.0 (0.70-1.30) mg/dL Est Cr Clr Drug Dosing TNP Estimated GFR (MDRD) > 60 Glucose 92 (70-99) mg/dL Lactic Acid (0.4-2.0) mmol/L Calcium 8.5 (8.5-10.1) mg/dL Corrected Calcium 9.2 (8.5-10.1) mg/dL Phosphorus (2.6-4.7) mg/dL Magnesium (1.8-2.4) mg/dL Total Bilirubin 0.5 (0.2-1.0) mg/dL AST 21 (15-37) U/L ALT 21 (16-63) U/L Alkaline Phosphatase 116 (46-116) U/L Troponin I High Sens (<=76) ng/L C-Reactive Protein (<=0.9) mg/dL NT-Pro-B Natriuret Pep (<=125) pg/mL Total Protein 6.9 (6.4-8.2) g/dL Albumin 3.1 L (3.4-5.0) g/dL Globulin 3.8 Albumin/Globulin Ratio 0.82 Urine Color (YELLOW) Urine Appearance (CLEAR) Urine pH (5.0-8.0) Ur Specific Rector Urine Protein (NEGATIVE) mg/dL Urine Glucose (UA) (NEGATIVE) mg/dL Urine Ketones (NEGATIVE) mg/dL Urine Occult Blood (NEGATIVE) Urine Nitrite (NEGATIVE) Urine Bilirubin (NEGATIVE) Urine Urobilinogen (0.2) EU/dL Ur Leukocyte Esterase (NEGATIVE) U Hyaline Cast (Auto) Urine RBC (NOT SEEN) /HPF Urine WBC (NOT SEEN) /HPF Ur Squamous Epith Cells (NOT SEEN) /HPF Urine Bacteria (NOT SEEN) /HPF Urine Mucus (NOT SEEN) /LPF 10/27/20 10/27/20 10/27/20 Range/Units 22:15 22:15 22:15 WBC (4.0-10.0) x10^3/uL RBC (4.5-6.0) x10^6/uL Hgb (14.0-18.0) g/dL Hct (40.0-52.0) % MCV (78.0-93.0) fL MCH (26.0-32.0) pg MCHC (32.0-36.0) g/dL RDW Coeff of Cristian (10.0-15.0) % Plt Count (130-400) x10^3/uL Add Manual Diff PT (9.9-12.5) SEC INR (2.0-3.5) APTT (25.6-32.8) SEC ABG pH (7.35-7.45) pH ABG pCO2 (35-48) mmHG ABG pO2 (83-108) mmHG ABG HCO3 (21-28) mmol/L ABG Total CO2 (22-29) mmol/L ABG O2 Content (94-98) % ABG Base Excess ((-2)-(+3)) mmol/L FiO2 Sodium (136-145) mmol/L Potassium (3.5-5.1) mmol/L Chloride (98-107) mmol/L Carbon Dioxide (21-32) mmol/L Anion Gap (5-15) mmol/L BUN (7-18) mg/dL Creatinine (0.70-1.30) mg/dL Est Cr Clr Drug Dosing Estimated GFR (MDRD) Glucose (70-99) mg/dL Lactic Acid 2.4 H* (0.4-2.0) mmol/L Calcium (8.5-10.1) mg/dL Corrected Calcium (8.5-10.1) mg/dL Phosphorus 3.0 (2.6-4.7) mg/dL Magnesium 1.5 L (1.8-2.4) mg/dL Total Bilirubin (0.2-1.0) mg/dL AST (15-37) U/L ALT (16-63) U/L Alkaline Phosphatase (46-116) U/L Troponin I High Sens 70 (<=76) ng/L C-Reactive Protein 6.6 H (<=0.9) mg/dL NT-Pro-B Natriuret Pep 1610 H (<=125) pg/mL Total Protein (6.4-8.2) g/dL Albumin (3.4-5.0) g/dL Globulin Albumin/Globulin Ratio Urine Color Yellow (YELLOW) Urine Appearance Slightly cloudy H (CLEAR) Urine pH 5.5 (5.0-8.0) Ur Specific Rector 1.025 Urine Protein 30 H (NEGATIVE) mg/dL Urine Glucose (UA) Negative (NEGATIVE) mg/dL Urine Ketones Negative (NEGATIVE) mg/dL Urine Occult Blood Moderate H (NEGATIVE) Urine Nitrite Positive H (NEGATIVE) Urine Bilirubin Negative (NEGATIVE) Urine Urobilinogen 0.2 (0.2) EU/dL Ur Leukocyte Esterase Small H (NEGATIVE) U Hyaline Cast (Auto) Few Urine RBC 10-20 H (NOT SEEN) /HPF Urine WBC 20-30 H (NOT SEEN) /HPF Ur Squamous Epith Cells Few H (NOT SEEN) /HPF Urine Bacteria Many H (NOT SEEN) /HPF Urine Mucus Few H (NOT SEEN) /LPF 10/27/20 Range/Units 22:35 WBC (4.0-10.0) x10^3/uL RBC (4.5-6.0) x10^6/uL Hgb (14.0-18.0) g/dL Hct (40.0-52.0) % MCV (78.0-93.0) fL MCH (26.0-32.0) pg MCHC (32.0-36.0) g/dL RDW Coeff of Cristian (10.0-15.0) % Plt Count (130-400) x10^3/uL Add Manual Diff PT (9.9-12.5) SEC INR (2.0-3.5) APTT (25.6-32.8) SEC ABG pH 7.39 (7.35-7.45) pH ABG pCO2 41 (35-48) mmHG ABG pO2 94 (83-108) mmHG ABG HCO3 25 (21-28) mmol/L ABG Total CO2 25 (22-29) mmol/L ABG O2 Content 97 (94-98) % ABG Base Excess 0 ((-2)-(+3)) mmol/L FiO2 Sodium (136-145) mmol/L Potassium (3.5-5.1) mmol/L Chloride (98-107) mmol/L Carbon Dioxide (21-32) mmol/L Anion Gap (5-15) mmol/L BUN (7-18) mg/dL Creatinine (0.70-1.30) mg/dL Est Cr Clr Drug Dosing Estimated GFR (MDRD) Glucose (70-99) mg/dL Lactic Acid (0.4-2.0) mmol/L Calcium (8.5-10.1) mg/dL Corrected Calcium (8.5-10.1) mg/dL Phosphorus (2.6-4.7) mg/dL Magnesium (1.8-2.4) mg/dL Total Bilirubin (0.2-1.0) mg/dL AST (15-37) U/L ALT (16-63) U/L Alkaline Phosphatase (46-116) U/L Troponin I High Sens (<=76) ng/L C-Reactive Protein (<=0.9) mg/dL NT-Pro-B Natriuret Pep (<=125) pg/mL Total Protein (6.4-8.2) g/dL Albumin (3.4-5.0) g/dL Globulin Albumin/Globulin Ratio Urine Color (YELLOW) Urine Appearance (CLEAR) Urine pH (5.0-8.0) Ur Specific [place] Urine Protein (NEGATIVE) mg/dL Urine Glucose (UA) (NEGATIVE) mg/dL Urine Ketones (NEGATIVE) mg/dL Urine Occult Blood (NEGATIVE) Urine Nitrite (NEGATIVE) Urine Bilirubin (NEGATIVE) Urine Urobilinogen (0.2) EU/dL Ur Leukocyte Esterase (NEGATIVE) U Hyaline Cast (Auto) Urine RBC (NOT SEEN) /HPF Urine WBC (NOT SEEN) /HPF Ur Squamous Epith Cells (NOT SEEN) /HPF Urine Bacteria (NOT SEEN) /HPF Urine Mucus (NOT SEEN) /LPF Meds: Medications Generic Name Dose Route Start Last Admin Trade Name Freq PRN Reason Stop Dose Admin Vancomycin HCl 1.25 gm/ Premix 250 mls @ 200 mls/hr 10/27/20 22:28 10/27/20 22:42 IV 10/27/20 23:42 200 mls/hr STAT ONE Administration Sodium Chloride 1,000 mls @ 30 mls/hr 10/27/20 22:40 Normal Saline IV ASDIRECTED JARETT Discontinued Medications Generic Name Dose Route Start Last Admin Trade Name Freq PRN Reason Stop Dose Admin Acetaminophen 1,000 mg 10/27/20 22:52 10/27/20 23:06 Acetaminophen 500 Mg Tab PO 10/27/20 22:53 1,000 mg ONETIME ONE Administration Albuterol/Ipratropium 3 ml 10/27/20 21:26 10/27/20 21:30 Albuterol/Ipratropium 3.0-0.5 Mg/3 Ml Neb Soln NEB 10/27/20 21:27 3 ml ONETIME ONE Administration Furosemide 40 mg 10/27/20 21:18 10/27/20 21:25 Furosemide 40 Mg/4 Ml Vial IV 10/27/20 21:19 40 mg ONETIME ONE Administration Vancomycin HCl 1.25 gm/ Sodium 250 mls @ 200 mls/hr 10/27/20 22:05 Chloride IV 10/27/20 23:19 STAT ONE Meropenem 1 gm 10/27/20 22:03 10/27/20 22:25 Meropenem 1 Gm Sdv IVPUSH 10/27/20 22:04 1 gm STAT ONE Administration Morphine Sulfate 4 mg 10/27/20 22:11 10/27/20 22:31 Morphine 4 Mg/Ml Syringe IVPUSH 10/27/20 22:12 4 mg ONETIME ONE Administration Departure - Departure Time of Disposition: 23:29 Disposition: DC/Tfer to [facility] 02 Clinical Impression: Pneumonia, UTI (urinary tract infection), Sepsis - Discharge Information Referrals: Alla Hoff DO [Primary Care Provider] - Forms: ED Department Discharge, Interfacility Transfer KAREN Sepsis Event Note (ED) - Focused Exam Vital Signs: Vital Signs Temp Temp Pulse Resp BP Pulse Ox 10/27/20 23:06 38.5 C H 10/27/20 20:51 37.9 C 130 H 20 129/70 88 L - Problem List Review Problem List Initiated/Reviewed/Updated: Yes - My Orders Last 24 Hours: My Active Orders 10/27/20 20:59 Chest 1V Frontal [CR] Stat Hip Min 2V or 3V w Pelvis Lt [CR] Stat 10/27/20 21:16 EKG Documentation Completion [RC] STAT Blood Culture x2 Reflex Set [OM.PC] Stat 10/27/20 21:26 RT Aerosol Therapy [RC] ASDIRECTED 10/27/20 22:15 CBC WITH AUTO DIFF [HEME] Stat CULTURE BLOOD [BC] Stat CULTURE URINE [RM] Stat MANUAL DIFFERENTIAL QA/NC [HEME] Stat PROCALCITONIN [CHEM] Stat 10/27/20 22:25 CULTURE BLOOD [BC] Stat 10/27/20 22:28 VANCOmycin 1.25 GM/250 ML 1.25 gm Premix Bag 1 bag IV STAT 10/27/20 22:40 Sodium Chloride 0.9% [Normal Saline] 1,000 ml IV ASDIRECTED 10/27/20 23:12 CORONAVIRUS COVID-19 RAPID [MOLEC] Stat 10/27/20 23:15 REFLEX LACTIC ACID YES OR NO [CHEM] Routine - Assessment/Plan Last 24 Hours: My Active Orders 10/27/20 20:59 Chest 1V Frontal [CR] Stat Hip Min 2V or 3V w Pelvis Lt [CR] Stat 10/27/20 21:16 EKG Documentation Completion [RC] STAT Blood Culture x2 Reflex Set [OM.PC] Stat 10/27/20 21:26 RT Aerosol Therapy [RC] ASDIRECTED 10/27/20 22:15 CBC WITH AUTO DIFF [HEME] Stat CULTURE BLOOD [BC] Stat CULTURE URINE [RM] Stat MANUAL DIFFERENTIAL QA/NC [HEME] Stat PROCALCITONIN [CHEM] Stat 10/27/20 22:25 CULTURE BLOOD [BC] Stat 10/27/20 22:28 VANCOmycin 1.25 GM/250 ML 1.25 gm Premix Bag 1 bag IV STAT 10/27/20 22:40 Sodium Chloride 0.9% [Normal Saline] 1,000 ml IV ASDIRECTED 10/27/20 23:12 CORONAVIRUS COVID-19 RAPID [MOLEC] Stat 10/27/20 23:15 REFLEX LACTIC ACID YES OR NO [CHEM] Routine Plan: No obvious fracture of the hip noted. Pt. noted to have bilateral bibasilar pneumonia. + UTI. He was started on IV merropenem and vancomycin. He was also given lasix 40mg IV. He was started on HFNC at 60 liters, 100% O2. Pt. was accepted by Dr. Tate. Pt. will be admitted to intermediate care. All questions were answered.
[2020-10-27] MEDS ORDERED: Meropenem 1 GM SDV IVPUSH ONE (22:03)
[2020-10-27] MEDS ORDERED: Morphine 4 MG/ML Syringe IVPUSH ONE (22:11)
[2020-10-27] MEDS ORDERED: VANCOmycin 1.25 GM/250 ML 1.25 GM in Premix Bag 1 BAG IV ONE (22:28)
[2020-10-27] MEDS ORDERED: Sodium Chloride 0.9% 1,000 ML IV SCH (22:40)
[2020-10-27 22:45] LABS: BASE EXCESS ARTERIAL 0 mmol/L ((-2)-(+3)); BICARBONATE,ARTERIAL 25 mmol/L (21-28); PCO2 ARTERIAL 41 mmHG (35-48); PO2 ARTERIAL 94 mmHG (83-108)
[2020-10-27] MEDS ORDERED: Acetaminophen 500 MG Tab PO ONE (22:52)
[2020-10-27 22:53] LABS: PTT,PARTIAL THROMBOPLSTIN TIME 29.3 SEC (25.6-32.8)
[2020-10-27 22:56] LABS: CHLORIDE,CL 97 mmol/L (98-107); SODIUM,NA 133 mmol/L (136-145)
[2020-10-27 23:06] LABS: ANION GAP 12.1 mmol/L (5-15)
--- NOTE | 2020-10-28 08:34 | CR ---
[id number] RAD/RAD Pelvis 1V W 2V Left Hip EXAM: RAD Pelvis 1V W 2V Left Hip INDICATION: FALL, LEFT HIP PAIN COMPARISON: None. DISCUSSION: Soft tissue attenuation and overlying leads somewhat limit this exam. Previous cannulated screw fixation of a femoral neck fracture no definite acute fracture. Chronic healed left pubic rami fractures are suggested. Moderate osteoarthritis. Partially imaged bipolar right hip prosthesis without evident hardware complication. IMPRESSION: 1. No acute findings. Juan Egan MD 10/28/20 0534 Thank you for allowing us to participate in the care of your patient.
[2020-10-28 10:02] VITALS: PULSE 132
[2020-10-28 11:02] VITALS: BP 94/57
== END 2020-10-28 00:20 | disposition short-term general hospital (02) ==
LOC: VM.ED 20:51
DX: A41.9 Sepsis, unspecified organism (principal); J18.9 Pneumonia, unspecified organism; N39.0 Urinary tract infection, site not specified; J44.9 Chronic obstructive pulmonary disease, unspecified; Z79.82 Long term (current) use of aspirin; Z88.0 Allergy status to penicillin; Z79.899 Other long term (current) drug therapy
CPT/HCPCS: 36415; 36600; 51702; 71045; 80053; 81001; 82803; 83605; 83735; 83880; 84100; 84145; 84484; 85025; 85610; 85730; 86140; 87040; 87086; 87088; 87186; 93005; 93010; 94640; 94760; 96365; 96375; 99284; 99285-25; A9270-GY; J1940; J2185; J2270; J3370; J7620-GY; U0002